=== PATIENT | female | born 1985 | race Caucasian/White ===

== ENCOUNTER 2016-09-12 19:48 | Emergency (ER) | payer OTHER ==
[~2016-09-12] VITALS: Ht 167.6 cm; Wt 62.1 kg
[~2016-09-12 19:48] MED LIST: FERR325T58 PO; LABE100T3 PO; PNV1TABL25 PO
[2016-09-12 20:05] VITALS: BP 132/86
[2016-09-12 20:43] LABS: BILIRUBIN,URINE NEG (NEG); CLARITY,URINE CLOUDY; COLOR,URINE YELLOW; GLUCOSE,URINE NEG (NEG); NITRITE,URINE NEG (NEG); UROBILINOGEN,URINE 0.2 mg/dL (0.2 mg/dL)
[2016-09-12 20:44] LABS: BACTERIA,URINE MOD /HPF (0-FEW); SQUAMOUS EPITHELIAL CELL,UR MOD /LPF; WBC,URINE >40 /HPF (0-4)
[2016-09-12] MEDS ORDERED: PHEN100T82 PO (21:06)
[2016-09-12] MEDS ORDERED: SULF1TAB24 PO (21:06)
--- NOTE | 2016-09-12 21:09 | PHYS DOC ---
General Chief Complaint: PAIN ON URINATION Stated Complaint: URINARY PROBLEMS Time Seen by MD: 19:58 Source: patient Exam Limitations: no limitations Problems: History of Present Illness Initial Comments Pt is 31/F to ED c/o urinary frequency. Pt states for the past few days she's had frequency/hesitancy low abd pressure, no hematuria/weight loss. No flank pain, pt has had mild nausea no emesis. No fever/chills/myalgias, thinks she has UTI. No prearrival treatment pt normally healthy. Pt recently had intercourse and did not void afterwards but fell asleep. Timing/Duration: getting worse Severity/Quality: moderate, cramping, fullness Location: suprapubic Radiation: none Activities at Onset: none Prior Genitourinary Problems: similar symptoms Sexual [place] History: less than 2 months ago, single partner Modifying Factors: worse with urinating Associated Symptoms: abdominal pain, dysuria, nocturia, polyuria, urinary frequency Allergies: Coded Allergies: hydrocodone (Unverified Allergy, Mild, Nausea, 01/13/15) Past Medical History Medical History: hypertension Surgical History: noncontributory Social History Smoker: cigarettes Alcohol: rarely Drugs: none Review of Systems Constitutional: denies chills, denies fever, denies malaise Respiratory: denies cough, denies shortness of breath, denies wheezing Cardiovascular: denies chest pain, denies palpitations, denies syncope Gastrointestinal: denies abdominal pain, denies diarrhea, nauseadenies vomiting Genitourinary: see HPI Musculoskeletal: denies back pain, denies joint swelling, denies neck pain Psychiatric/Neurological: denies headache, denies numbness, denies paresthesia Physical Exam General Appearance: WD/WN, no apparent distress Neck: non-tender, supple Cardiovascular/Respiratory: normal peripheral pulses, normal breath sounds, no respiratory distress Gastrointestinal: soft (ND, mild suprapubic TTP no r/g/mass, neg mcburney/ galvez BS nl) Back: no CVA tenderness, no vertebral tenderness Extremities: non-tender, normal inspection Neurologic/Psychiatric: 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 OTC tylenol as needed. Void after intercourse. Rx: bactrim ds, pyridium, take with food. Take diflucan upon completion of antibiotics to treat presumed yeast infection. Follow up with your doctor in 7-10 days for recheck and urine culture results. Return to ED with new or changing symptoms. YAQUELIN TARIQ DO Sep 12, 2016 21:09
[2016-09-12] MEDS ORDERED: ONDA4TAB10 PO (21:10)
[2016-09-12] MEDS ORDERED: FLUC150T PO (21:10)
[2016-09-12] MEDS ORDERED: PHENAZOPYRIDINE 100 MG TABLET. PO ONE (21:30)
[2016-09-12] MEDS ORDERED: SMZ/TMP 800/160MG TABLET. PO ONE (21:30)
== END 2016-09-12 21:12 | disposition home or self-care (01) ==
LOC: ER 19:48
DX: N39.0 Urinary tract infection, site not specified (principal); I10 Essential (primary) hypertension; F17.210 Nicotine dependence, cigarettes, uncomplicated; Z88.5 Allergy status to narcotic agent
CPT/HCPCS: 81001; 87086; 99284

== ENCOUNTER 2018-06-12 16:11 | Emergency (ER) | payer OTHER ==
[~2018-06-12] VITALS: Ht 167.6 cm; Wt 58.5 kg
[~2018-06-12 16:11] MED LIST changes: +FLUC150T PO; -LABE100T3 PO; +LABE100T5 PO; +ONDA4TAB10 PO; +PHEN100T82 PO; +SULF1TAB24 PO
[2018-06-12 16:23] VITALS: BP 135/90
[2018-06-12] MEDS ORDERED: AMOX500C PO ×2 (16:59→17:04)
[2018-06-12] MEDS ORDERED: TRAM-48 PO ×2 (16:59→17:04)
--- NOTE | 2018-06-12 16:59 | PHYS DOC ---
Past History Past Medical History: Hypertension Past Surgical History: No Surgical History Smoking: Cigarettes, Less than 1pk/day Alcohol Use: Rarely Drug Use: None Adult General Chief Complaint Chief Complaint: DENTAL PROBLEM HPI HPI Patient is a 32 year old female who presents with complaining of left upper jaw and gum pain and edema since yesterday. Patient complaining of constant pain of gum that getting worse with chewing without tooth pain, fever and chills, nausea and vomiting, history of the same problem. Patient state she took ibuprofen partial improvement of pain. Review of Systems Review of Systems Constitutional: Denies fever or chills [] Eyes: Denies change in visual acuity, redness, or eye pain [] HENT: Denies nasal congestion or sore throat, reports gum pain [] Respiratory: Denies cough or shortness of breath [] Cardiovascular: No additional information not addressed in HPI [] GI: Denies abdominal pain, nausea, vomiting, bloody stools or diarrhea [] : Denies dysuria or hematuria [] Musculoskeletal: Denies back pain or joint pain [] Integument: Denies rash or skin lesions [] Neurologic: Denies headache, focal weakness or sensory changes [] Endocrine: Denies polyuria or polydipsia [] All other systems were reviewed and found to be within normal limits, except as documented in this note. Allergies Allergies Allergies Coded Allergies Type Severity Reaction Last Updated Verified hydrocodone Allergy Mild Nausea 01/13/15 No Physical Exam Physical Exam Constitutional: Well developed, well nourished, no acute distress, non-toxic appearance. [] HENT: Normocephalic, atraumatic, bilateral external ears normal, oropharynx moist, no oral exudates, nose normal edema and erythema of gum around tooth #15 without abscess Eyes: PERRLA, EOMI, conjunctiva normal, no discharge. [] Neck: Normal range of motion, no tenderness, supple, no stridor. [] Cardiovascular:Heart rate regular rhythm, no murmur [] Lungs & Thorax: Bilateral breath sounds clear to auscultation [] Extremities: No tenderness, no cyanosis, no clubbing, ROM intact, no edema. [] Neurologic: Alert and oriented X 3, normal motor function, normal sensory function, no focal deficits noted. [] Psychologic: Affect normal, judgement normal, mood normal. [] Current Patient Data Vital Signs Vital Signs Date Time Temp Pulse Resp B/P (MAP) Pulse Ox O2 Delivery O2 Flow Rate FiO2 06/12/18 16:23 98.0 86 20 99 EKG EKG [] Radiology/Procedures Radiology/Procedures [] Course & Med Decision Making Course & Med Decision Making discharge: I've spoken with the patient and/or caregivers. I've explained the patient's condition, diagnosis and treatment plan based on information available to me at this time. I've answered the patient's and/or caregivers questions and addressed any concerns. The patient and/or caregivers have a good understanding the patient's diagnosis, condition and treatment plan as can be expected at this point. Vital signs have been stabilized. The patient's condition is stable for discharge from the emergency department. The patient will pursue further outpatient evaluation with her primary care provider or other designated consulting physician as outlined in the discharge instructions. Patient and/or caregivers are agreeable to this plan of care and follow-up instructions have been explained in detail. The patient and/or caregivers have received these instructions in written format and expressed understanding of these discharge instructions. The patient and her caregivers are aware that if any significant change in condition or worsening of symptoms should prompt him to immediately return to this of the closest emergency department. If an emergent department is not readily available I would encourage him to call 911. Dragon Disclaimer Dragon Disclaimer This electronic medical record was generated, in whole or in part, using a voice recognition dictation system. Departure Departure: Impression: Primary Impression: Gum inflammation Additional Impressions: Tobacco abuse Tobacco abuse counseling Disposition: HOME, SELF-CARE (at 1655) Condition: STABLE Referrals: PENNIE TOLEDO (PCP) Patient Instructions: Gingivitis, Teeth and Gum Care, [id number] Additional Instructions: Drink plenty of liquids Follow-up with your primary care physician in 3-5 days Return to ER if not getting better Follow-up with your dentist in 5-7 days Scripts Tramadol Hcl (ULTRAM) 50 Mg Tablet 50 MG PO PRN Q6HRS PRN for PAIN, #14 TAB Prov: CHIQUITA RICKETTS MD 06/12/18 Amoxicillin (AMOXICILLIN) 500 Mg Capsule 1 CAP PO TID for URI, #30 CAP Prov: CHIQUITA RICKETTS MD 06/12/18 Problem Qualifiers CHIQUITA RICKETTS MD Jun 12, 2018 16:59
== END 2018-06-12 17:00 | disposition home or self-care (01) ==
LOC: ER 16:11
DX: K05.10 Chronic gingivitis, plaque induced (principal); F17.210 Nicotine dependence, cigarettes, uncomplicated; I10 Essential (primary) hypertension; Z71.6 Tobacco abuse counseling; Z88.5 Allergy status to narcotic agent
CPT/HCPCS: 99283

== ENCOUNTER 2018-07-14 14:41 | Emergency (ER) | payer OTHER ==
[~2018-07-14] VITALS: Ht 167.6 cm; Wt 59.6 kg
[~2018-07-14 14:41] MED LIST changes: +AMOX500C PO; +TRAM-48 PO
--- NOTE | 2018-07-14 15:10 | PHYS DOC ---
Past History Past Medical History: Hypertension Past Surgical History: No Surgical History Smoking: Cigarettes, Less than 1pk/day Alcohol Use: Heavy Drug Use: None Adult General Chief Complaint Chief Complaint: URINARY FREQUENCY HPI HPI Patient is a 32-year-old female who presents with complaint of urinary frequency and urgency that has been going on for the last couple of days. She denies any fever. She also indicates that she has had a little bit of a heavier vaginal discharge that usual. She states that there is little bit of an odor to it. Patient does not believe that she has any possibility of STD and denies any vaginal inflammation, burning or stinging. She does indicate that she has a history of bacterial vaginosis and believes that's what it is. Review of Systems Review of Systems Constitutional: Denies fever or chills [] Respiratory: Denies cough or shortness of breath [] Cardiovascular: No additional information not addressed in HPI [] GI: Denies abdominal pain, nausea, vomiting or diarrhea [] : Admits to urinary frequency and urgency [] Allergies Allergies Allergies Coded Allergies Type Severity Reaction Last Updated Verified hydrocodone Allergy Mild Nausea 01/13/15 No Physical Exam Physical Exam Constitutional: Well developed, well nourished, no acute distress, non-toxic appearance. []ral exudates, nose normal. [] Eyes: PERRLA, EOMI, conjunctiva normal, no discharge. [] Neck: Normal range of motion, no tenderness, supple, no stridor. [] Cardiovascular: Regular rate and rhythm [] Lungs & Thorax: Bilateral breath sounds clear to auscultation [] Abdomen: Bowel sounds normal, soft, no tenderness. [] Current Patient Data Vital Signs Vital Signs Date Time Temp Pulse Resp B/P (MAP) Pulse Ox O2 Delivery O2 Flow Rate FiO2 07/14/18 14:57 98.1 85 18 85 Room Air EKG EKG [] Radiology/Procedures Radiology/Procedures [] Course & Med Decision Making Course & Med Decision Making Pertinent Labs and Imaging studies reviewed. (See chart for details) [] Dragon Disclaimer Dragon Disclaimer This electronic medical record was generated, in whole or in part, using a voice recognition dictation system. Departure Departure: Impression: Primary Impression: Urinary tract infection Additional Impression: Bacterial vaginosis Disposition: HOME, SELF-CARE Condition: STABLE Referrals: PCP,NO (PCP) Patient Instructions: Bacterial Vaginosis, Urinary Tract Infection Scripts Metronidazole (METRONIDAZOLE) 500 Mg Tablet 1 TAB PO TID for infection, #21 TAB Prov: ROYCE MALDONADO Jr. DO 07/14/18 Sulfamethoxazole/Trimethoprim (BACTRIM DS TABLET) 1 Each Tablet 1 TAB PO BID for infection, #14 TAB Prov: ROYCE MALDONADO Jr. DO 07/14/18 Problem Qualifiers Primary Impression: Urinary tract infection Urinary tract infection type: site unspecified Hematuria presence: with hematuria Qualified Codes: N39.0 - Urinary tract infection, site not specified ; R31.9 - Hematuria, unspecified ROYCE MALDONADO Jr. DO Jul 14, 2018 15:10
[2018-07-14 15:34] LABS: BACTERIA,URINE MOD /HPF (0-FEW); BILIRUBIN,URINE NEG (NEG); CLARITY,URINE HAZY; COLOR,URINE YELLOW; GLUCOSE,URINE NEG (NEG); NITRITE,URINE NEG (NEG); SQUAMOUS EPITHELIAL CELL,UR MOD /LPF; UROBILINOGEN,URINE 0.2 mg/dL (0.2 mg/dL)
[2018-07-14] MEDS ORDERED: METR-34 PO (15:58)
[2018-07-14] MEDS ORDERED: SULF1TAB24 PO (15:58)
[2018-07-14 16:05] VITALS: BP 132/88
== END 2018-07-14 16:06 | disposition home or self-care (01) ==
LOC: ER 14:41
DX: N39.0 Urinary tract infection, site not specified (principal); R31.9 Hematuria, unspecified; N76.0 Acute vaginitis; B96.89 Other specified bacterial agents as the cause of diseases classified elsewhere; I10 Essential (primary) hypertension; F17.210 Nicotine dependence, cigarettes, uncomplicated; F10.20 Alcohol dependence, uncomplicated; Z88.5 Allergy status to narcotic agent; Y90.9 Presence of alcohol in blood, level not specified
CPT/HCPCS: 36415; 81001; 87086; 87491; 87591; 99283